=== PATIENT | female | born 1945 | race Caucasian/White ===

== ENCOUNTER 2017-11-10 14:04 | Outpatient (CLI) | payer MEDICARE, OTHER ==
[2017-11-10 14:20] VITALS: BP 117/57
--- NOTE | 2017-11-10 15:36 | GI Initial Consult Note ---
NatalyJaja Gilloi N.P. 11/10/17 1536: History of Present Illness General Date patient seen: Nov 10, 2017 Time patient seen: 15:31 Referring physician: KATIE Reason for Consultation: SCREENING GERD Present Illness HPI 72 year old female patient referred by Dr. Mayer for screening EGD/colonoscopy. Patient with no prior history of endoscopy/colonoscopy. She presents today with additional complaints of occasional diarrhea and abdominal bloating. Denies any unintentional weight loss or changes in dietary habits. No signs of abuse or neglect. Patient is not fall risk. Patient is currently on no medication. Med list reviewed/reconciled: Yes Allergies: Coded Allergies: No Known Allergies (Unverified , 11/10/17) Patient History History Provided By: Patient, Medical Record [facility] Narrative Lung CA with resection Cervical CA Past Surgical History: Oophorectomy S/p Chemo x 4 years abdominal surgery Family History Narrative Mother with cervical CA Social History: Reports: other - coffee; Denies: smoking, alcohol use, drug use Review of Systems All Other Systems: negative except mentioned in HPI Physical Exam T 98 Bp 117/57 P 104 94 RA WT 172.9 lbs Sp02 EP Interpretation: reviewed, normal General Appearance: well appearing, no apparent distress, alert Head: normocephalic EENT: PERRL/EOMI, normal ENT inspection Neck: supple Respiratory: normal breath sounds, no respiratory distress Cardiovascular: normal rate Gastrointestinal: normal inspection, non tender, soft, normal bowel sounds, non -distended Rectal: deferred Genitourinary: no CVA tenderness Musculoskeletal: normal inspection, back normal Neurologic: normal inspection, alert, oriented x3, responsive Psychiatric: normal inspection, judgement/insight normal, memory normal Skin: normal inspection, normal color, no rash, warm/dry, palpation normal, well hydrated Lymphatic: normal inspection, no adenopathy GI: Plan Problems: (1) Diarrhea (2) Abdominal bloating (3) GERD (gastroesophageal reflux disease) (4) Colonoscopy planned Plan EGD/colonoscopy scheduled for 11/14/17. - CLD & (Nulytely/Suprep/Movi-Prep) prep instructions given and acknowledged by patient. - NPO @ [place] day prior procedure explained. Seen with Dr. Castaneda. Thank you for this patient referral. ARNAUD CASTANEDA 11/11/17 1020: History of Present Illness Present Illness Allergies: Coded Allergies: No Known Allergies (Unverified , 11/10/17) GI: Plan Plan The patient was seen and examined at bedside and all new and available data was reviewed in the patients chart. I agree with the above findings, impression and plan. (Patient seen earlier today. Signature stamp does not reflect patient encounter time.). - MD Nataly Strauss Anh George Cunningham Nov 10, 2017 15:36 ARNAUD CASTANEDA Nov 11, 2017 10:20
== END 2017-11-10 14:36 | disposition home or self-care (01) ==
LOC: PAN 14:04
DX: R19.7 Diarrhea, unspecified (principal); R14.0 Abdominal distension (gaseous); K21.9 Gastro-esophageal reflux disease without esophagitis; Z85.41 Personal history of malignant neoplasm of cervix uteri; Z85.118 Personal history of other malignant neoplasm of bronchus and lung; Z90.721 Acquired absence of ovaries, unilateral; Z80.8 Family history of malignant neoplasm of other organs or systems
CPT/HCPCS: 99201

== ENCOUNTER 2017-11-14 07:04 | Day surgery (SDC) | payer MEDICARE, OTHER ==
[2017-11-14] VITALS (9 sets, daily range): BP systolic 122–145; BP diastolic 61–80
[~2017-11-14] VITALS: Ht 172.7 cm; Wt 74.8 kg
[2017-11-14] MEDS ORDERED: CHOLESTEROL MED (07:53)
[2017-11-14] MEDS ORDERED: Propofol 200mg/20ml IV ONE (09:00)
[2017-11-14] MEDS ORDERED: LR 1000ml ONE (09:00)
[2017-11-14] MEDS ORDERED: Midazolam 2mg/2ml Inj ONE (09:00)
[2017-11-14] MEDS ORDERED: fentaNYL 100 mcg/2 mL IV ONE (09:00)
--- NOTE | 2017-11-14 09:04 | Pre-Procedure Note/Attestation ---
Pre-Procedure Note/Attestation Complete Prior to Procedure Planned Procedure: not applicable Procedure Narrative: esophagogastroduodenoscopy and colonoscopy Indications for Procedure Pre-Operative Diagnosis: screening colon, GERD Attestation I attest that I discussed the nature of the procedure; its benefits; risks and complications; and alternatives (and the risks and benefits of such alternatives ), prior to the procedure, with the patient (or the patient's legal event representative). I attest that, if there was a reasonable possibility of needing a blood transfusion, the patient (or the patient's legal event representative) was given the [facility] standardized written summary, pursuant to the [employer] [place] Blood Safety Act ([place] Health and Safety Code # 1645, as amended). I attest that I re-evaluated the patient just prior to the surgery and that there has been no change in the patient's H&P, except as documented below: ARNAUD CASTANEDA Nov 14, 2017 09:04
--- NOTE | 2017-11-14 09:04 | Anethesia Preoperative Eval ---
Anesthesia Pre-op PMH/ROS General Date of Evaluation: Nov 14, 2017 Time of Evaluation: 09:03 Anesthesiologist: Renuka ASA Score: ASA 3 Mallampati Score Class I : Soft palate, uvula, fauces, pillars visible Class II: Soft palate, uvula, fauces visible Class III: Soft palate, base of uvula visible Class IV: Only hard plate visible Mallampati Classification: Class II Surgeon: Perla Diagnosis: Abdominal pain Surgical Procedure: EGD colonoscopy Anesthesia History: none Family History: no anesthesia problems Allergies: Coded Allergies: No Known Allergies (Unverified , 11/14/17) Past Medical History Cardiovascular: Reports: HTN - mild; Denies: CAD, HI, valve dz, arrhythmia, other Pulmonary: Reports: CARMEN; Denies: asthma, COPD, other Gastrointestinal/Genitourinary: Reports: GERD; Denies: CRI, ESRD, other Neurologic/Psychiatric: Denies: dementia, CVA, depression/anxiety, TIA, other Endocrine: Denies: DM, hypothyroidism, steroids, other HEENT: Denies: cataract (L), cataract (R), glaucoma, [place] (L), [place] (R), other Hematology/Immune: Reports: anemia - mild; Denies: DVT, bleeding disorder, other Musculoskeletal/Integumentary: Denies: OA, RA, DJD, DDD, edema, other PMH Narrative: as above PSxH Narrative: Resection of bilateral lung CA Anesthesia Pre-op Phys. Exam Physician Exam Last Vital Signs Date Time Temp Pulse Resp B/P (MAP) Pulse Ox O2 Delivery O2 Flow Rate FiO2 11/14/17 07:34 97.0 89 17 145/80 98 Room Air 97.0 Constitutional: NAD Neurologic: CN 2-12 intact Cardiovascular: RRR, no M/R/G Respiratory: CTA Gastrointestinal: S/NT/ND Airway Exam Mallampati Score: Class II MO: limited Neck: stiff ROM: limited Teeth: missing Dentures: upper, lower Anesthesia Pre-op A/P Studies Pre-op Studies: EKG - NSR Risk Assessment & Plan Assessment: ASA 3 Plan: MAC Status Change Before Surgery: No Pre-Antibiotics Drug: none ALYCE WINCHESTER M.D. Nov 14, 2017 09:04
--- NOTE | 2017-11-14 09:04 | Short Stay Surgery H&P ---
History of Present Illness History of Present Illness Chief Complaint see recent office consult HPI aKtya Whitman is a 72 year old female who was admitted on for Gerd,Colon Screening Patient History Allergies: Coded Allergies: No Known Allergies (Unverified , 11/14/17) Medication History Miscellaneous Medications [Cholesterol Med], Unknown Dose, (Reported) Physical Exam Vital Signs Last Vital Signs Date Time Temp Pulse Resp B/P (MAP) Pulse Ox O2 Delivery O2 Flow Rate FiO2 11/14/17 07:34 97.0 89 17 145/80 98 Room Air 97.0 Plan Attestation Are the patient's medical conditions optimized for surgery? ARNAUD CASTANEDA Nov 14, 2017 09:04
[2017-11-14] MEDS ORDERED: LR 1000ml 1,000 ML IVLG SCH (09:20)
[2017-11-14] MEDS ORDERED: fentaNYL 100 mcg/2 mL IV PRN (09:30)
[2017-11-14] MEDS ORDERED: DiphenhydrAMINE 50mg/ml Inj IVP PRN (09:30)
--- NOTE | 2017-11-14 09:49 | Endoscopy Procedure Note ---
Endoscopy Procedure Note General Indication for Procedure: screening colon, GERD Procedures Performed: EGD, colonoscopy Operative Findings/Diagnosis: sigmoid stricture Specimen: yes Pt Tolerated Procedure Well: Yes Estimated Blood Loss: none Anesthesia Anesthesiologist: harsh Anesthesia: MAC Inserted Devices Implant(s) used?: No Quality Quality of Bowel Preparation: Excellent Did scope reach the cecum?: No Why scope didn't reach cecum: Therapeutic intervn only - colonic stricture Was there any complications?: No GI Core Measures 50 yrs or older w/o bx or poly: No 10yrs. F/U not recommended: Yes If not recommended, why?: Above average risk 10 yrs. F/U needed: Yes 18 years or older w/prev. colo: No ARNAUD CASTANEDA Nov 14, 2017 09:49
--- NOTE | 2017-11-14 09:54 | Immediate Post-Op Evaluation ---
Immediate Post-Op Evalulation Immediate Post-Op Evalulation Procedure: EGD Colonoscopy Date of Evaluation: Nov 14, 2017 Time of Evaluation: 09:53 IV Fluids: 700 Blood Products: none Estimated Blood Loss: none Urinary Output: none Blood Pressure Systolic: 127 Blood Pressure Diastolic: 72 Pulse Rate: 75 Respiratory Rate: 20 O2 Sat by Pulse Oximetry: 98 Temperature (Fahrenheit): 98.5 Pain Score (1-10): 1 Nausea: No Vomiting: No Complications none Patient Status: awake, patent, none Hydration Status: adequate ALYCE WINCHESTER M.D. Nov 14, 2017 09:54
[2017-11-14 10:16] LABS: BASOPHILS % (AUTO) 0.8 % (0.0-2.0); EOSINOPHILS % (AUTO) 1.6 % (0.0-3.0); HEMOGLOBIN 14.3 G/DL (12.0-16.0); LYMPHOCYTES % (AUTO) 11.6 % (20.0-45.0); MEAN CORPUSCULAR VOLUME 89 FL (80-99); MONOCYTES % (AUTO) 7.4 % (1.0-10.0); NEUTROPHILS % (AUTO) 78.6 % (45.0-75.0); PLATELET COUNT 270 K/UL (150-450); RED BLOOD COUNT 4.73 M/UL (4.20-5.40); RED CELL DISTRIBUTION WIDTH 12.4 % (11.6-14.8); WHITE BLOOD COUNT 5.9 K/UL (4.8-10.8)
[2017-11-14 10:37] LABS: ALANINE AMINOTRANSFERASE 23 U/L (12-78); ALBUMIN 3.3 G/DL (3.4-5.0); ALKALINE PHOSPHATASE 81 U/L (46-116); ANION GAP 8 mmol/L (5-15); ASPARTATE AMINO TRANSFERASE 14 U/L (15-37); BILIRUBIN,TOTAL 0.5 MG/DL (0.2-1.0); BLOOD UREA NITROGEN 16 mg/dL (7-18); CALCIUM 8.6 MG/DL (8.5-10.1); CARBON DIOXIDE 26 MMOL/L (21-32); CHLORIDE 108 MMOL/L (98-107); CREATININE 0.9 MG/DL (0.55-1.30); POTASSIUM 4.4 MMOL/L (3.5-5.1); SODIUM 142 MMOL/L (136-145)
--- NOTE | 2017-11-14 10:49 | 48 Hour Post Anesthesia Eval ---
Post Anesthesia Evaluation Procedure: EGD Colonoscopy Date of Evaluation: Nov 14, 2017 Time of Evaluation: 10:48 Blood Pressure Systolic: 125 0: 74 Pulse Rate: 72 Respiratory Rate: 20 Temperature (Fahrenheit): 97.8 O2 Sat by Pulse Oximetry: 98 Airway: patent Nausea: No Vomiting: No Pain Intensity: 1 Hydration Status: adequate Cardiopulmonary Status: stable Mental Status/LOC: patient returned to baseline Follow-up Care/Observations: n/a Post-Anesthesia Complications: none Follow-up care needed: ready to discharge ALYCE WINCHESTER M.D. Nov 14, 2017 10:49
--- NOTE | 2017-11-14 16:16 | Procedure Note ---
DATE OF PROCEDURE: 11/14/2017 SURGEON: Danny Duncan M.D. PROCEDURE: Upper endoscopy with biopsy, attempt colonoscopy, only flexible sigmoidoscopy was performed given colonic stricture. INDICATION: Screening colonoscopy and diarrhea. The procedure, risks, benefits, and possible consequences, including hemorrhage, aspiration, perforation and infection, and alternative treatments, were explained to the patient/legal guardian by Dr. Danny Duncan and the patient/legal guardian understood and accepted these risks. PROCEDURE IN DETAIL: After informed consent was obtained and the patient was adequately sedated, first Olympus upper endoscope was advanced from mouth into the second portion of the duodenum and retroflexion was performed in the stomach. The patient had the GE junction at 40 cm from the incisors. No evidence of any esophagitis, esophageal ulceration, or esophageal mass. In the stomach, there was diffuse gastritis. Random biopsies from antrum and body were obtained to rule out H. pylori infection. At this time, the upper endoscope was retrieved. The patient was turned over for colonoscopy. First, a rectal exam was performed, which was normal. Then, the scope was advanced from rectum into the sigmoid area. At about 20 cm from the anal verge, we encountered in a stricture area most probably from prior treatment for cancer. The patient had history of lung and history of cervical cancer. I am not sure if the patient got radiation and this is radiation-induced stricture. This area was friable. It was oozing blood when I tired to pass the scope. At this time, we decided to remove the colonoscope and try with upper scope. We were able to pass the stricture area with upper scope, but we only were able to advance the scope up to about the descending colon area. Though we saw the splenic flexure, but we could not advance beyond that point. Then, the scope was gradually retrieved. Biopsy from the descending colon and also biopsy from the stricture area was obtained. Then after this, we tried to go back again with adult colonoscope to give it another shot to see if we can pass it, but the patient was not tolerating it. She was in lot of pain, and also, she was becoming bradycardic. So, we decided to stop it. SUMMARY FINDINGS: 1. Diffuse gastritis, status post biopsy. 2. Incomplete colonoscopy examination secondary to stricture at 20 cm from the anal verge, possibly from prior cancer treatment of the cervix. 3. Status post biopsy of the descending colon and stricture area. RECOMMENDATIONS: Follow up biopsy results. Send some labs for today. We will have the patient come to the office. We will consider doing a virtual colonoscopy for her given that not able pass the scope beyond the splenic flexure area. I want to thank Dr. Aric Mayer for this kind referral. Danny Duncan M.D. DR: PANCHO JOB#: [id number] CC: Aric Mayer M.D.; Fax#: [phone]
== END 2017-11-14 10:55 | disposition home or self-care (01) ==
LOC: GAS 07:04
DX: Z12.11 Encounter for screening for malignant neoplasm of colon (principal); K29.70 Gastritis, unspecified, without bleeding; R00.1 Bradycardia, unspecified; Z85.41 Personal history of malignant neoplasm of cervix uteri; Z85.118 Personal history of other malignant neoplasm of bronchus and lung; I10 Essential (primary) hypertension; G47.33 Obstructive sleep apnea (adult) (pediatric); K21.9 Gastro-esophageal reflux disease without esophagitis
CPT/HCPCS: 36415; 43239; 45331; 80053; 82378; 85025; 93005; J2250; J2704; J3010; J7120; 94003; 94150

== ENCOUNTER 2017-11-28 13:52 | Outpatient (CLI) | payer MEDICARE, OTHER ==
[~2017-11-28 13:52] MED LIST: CHOLESTEROL MED
--- NOTE | 2017-11-28 16:17 | GI Progress Note ---
Assessment/Plan Problems: (1) Abdominal bloating ICD Codes: R14.0 - Abdominal distension (gaseous) SNOMED: 525933300 (2) GERD (gastroesophageal reflux disease) ICD Codes: K21.9 - Gastro-esophageal reflux disease without esophagitis SNOMED: 909109112 (3) Diarrhea ICD Codes: R19.7 - Diarrhea, unspecified SNOMED: 29877099 Status: unchanged Status Narrative Seen with Dr. Duncan. Assessment/Plan Endoscopy Procedure Note Indication for Procedure: screening colon, GERD Procedures Performed: EGD, colonoscopy Operative Findings/Diagnosis: sigmoid stricture ARNAUD DUNCAN - Nov 14, 2017 09:49 H. Pylori negative incomplete colonoscopy due to stricture 2/2 to hx of radiation plan for virtual colonoscopy The patient was seen and examined at bedside and all new and available data was reviewed in the patients chart. I agree with the above findings, impression and plan. (Patient seen earlier today. Signature stamp does not reflect patient encounter time.). - Carolina Duncan MD Subjective Gastrointestinal/Abdominal: Reports: no symptoms Objective T 98.3 BP 107/64 P 102 92 RA General Appearance: WD/WN, no apparent distress, alert Cardiovascular: normal rate Respiratory/Chest: normal breath sounds, no respiratory distress Abdominal Exam: normal bowel sounds, non tender, soft Extremities: normal range of motion, non-tender Jaja Ingram N.PChela Nov 28, 2017 16:17 ARNAUD DUNCAN Nov 29, 2017 13:18
== END 2017-11-28 14:25 | disposition home or self-care (01) ==
LOC: PAN 13:52
DX: K21.9 Gastro-esophageal reflux disease without esophagitis (principal); R19.7 Diarrhea, unspecified; R14.0 Abdominal distension (gaseous)
CPT/HCPCS: 99211